=== PATIENT | female | born 1950 | race Caucasian/White ===

== ENCOUNTER 2024-08-31 13:34 | Outpatient (OUT) | payer MEDICARE, SELFPAY ==
--- NOTE | 2024-08-31 13:38 | MM_ITS ---
Patient Name: VALENTÍN CHAIREZ MR#: [id number] : 1950 Exam Date: 08/31/2024 Ordering Doctor: DR SURI ESPARZA M.D. RADIOLOGY REPORT PROCEDURE: MM TOMOSYNTHESIS SCREENING BI COMPARISON: MG MAMM SCREEN LUIS W CAD, 12/06/2019. MG MAMM SCREEN 3D LUIS CAD, 03/12/2022. INDICATIONS: Screening Calculator Name NCI Breast Cancer Risk Assessment Tool 5 Year Breast Cancer Risk 1.40% Lifetime Breast Cancer Risk 3.20% Personal Breast Cancer No Personal Ovarian Cancer No Treatments None Family Cancers Aunt-maternal with breast cancer at age 32; Mother with ovarian cancer at age 63. LOCATION: [facility] BREAST COMPOSITION: There are scattered areas of fibroglandular density. FINDINGS: DIAGNOSTIC CATEGORY 2--BENIGN FINDING. NO CHANGE FROM COMPARISON. Scattered benign-appearing calcifications are present. RIGHT BREAST: No significant suspicious finding. LEFT BREAST: No significant suspicious finding. RECOMMENDATIONS: ROUTINE MAMMOGRAM AND CLINICAL EVALUATION IN 12 MONTHS. PLEASE NOTE: A NORMAL MAMMOGRAM DOES NOT EXCLUDE THE POSSIBILITY OF BREAST CANCER. A CLINICALLY SUSPICIOUS PALPABLE LUMP SHOULD BE BIOPSIED. Dictated by: Enrique Leo MD on 08/31/2024 at 15:11 Approved by: Enrique Leo MD on 08/31/2024 at 15:12
--- NOTE | 2024-08-31 13:38 | XR_ITS ---
The [address] [address] Patient Name: VALENTÍN CHAIREZ MRN: [id number] date: 1950 Sex: F Assigned Patient Location: [facility] Current Patient Location: Accession/Order Number: [id number] Exam Date: 08/31/2024 13:55 Report Date: 09/01/2024 04:51 At the request of: SURI ESPARZA Procedure: XR DEXA axial skeleton EXAMINATION: XR DEXA axial skeleton HISTORY: Estrogen Deficiency COMPARISON: DEXA bone densitometry 03/12/2022 TECHNIQUE: Dual-energy X-ray absorptiometry (DXA) was performed. FINDINGS: SPINE ANALYSIS: Average bone mineral density is 1.014 g/cm2. T-score (standard deviation relative to young adult mean): -1.4 . -9.7% change since prior study. HIP ANALYSIS: Lowest bone mineral density is within the right femoral neck, 0.697 g/cm2. T-score (standard deviation relative to young adult mean): -2.5 . -2.3% change since prior study. XR/XR DEXA axial skeleton IMPRESSION: World Health Organization Classification: Osteoporosis - High Fracture Risk FRAX: Cannot be calculated. Pharmacologic treatment recommendations * No uniform recommendation applies to all patients. Management plans must be individualized. * Consider initiating pharmacologic treatment in postmenopausal women and men >= 50 years of age who have the following: Primary fracture prevention: * T-score <= - 2.5 at the femoral neck, total hip, lumbar spine, 33% radius (some uncertainty with existing data) by DXA. * Low bone mass (osteopenia: T-score between - 1.0 and - 2.5) at the femoral neck or total hip by DXA with a 10-year hip fracture risk >= 3% or a 10-year major osteoporosis-related fracture risk >= 20% (i.e., clinical vertebral, hip, forearm, or proximal humerus) based on the [place]-adapted FRAXregistered model. Secondary fracture prevention: * Fracture of the hip or vertebra regardless of BMD [4, 5]. * Fracture of proximal humerus, pelvis, or distal forearm in persons with low bone mass (osteopenia: T-score between - 1.0 and - 2.5). The decision to treat should be individualized in persons with a fracture of the proximal humerus, pelvis, or distal forearm who do not have osteopenia or low BMD [12, 13]. Melissa MS, Katalina SL, Ben KL, Art EM, Buddy KG, AJ, Micaela ES. The clinician's guide to prevention and treatment of osteoporosis. Osteoporos Int. 2021;33(10):7208-6118. doi: 10.1007/m26490-463-96961-c. Epub 2021Feb 13. Erratum in: Osteoporos Int. 2021May 15;: PMID: [id number]; PMCID: [id number]. Electronically authenticated by: VICKI GLEZ Date: 09/01/2024 04:51
== END 2024-08-31 13:35 | disposition home or self-care (01) ==
LOC: MAMMO 13:34
PROVIDERS: PCP Internal Medicine; Visit Provider Internal Medicine
DX: Z12.31 Encounter for screening mammogram for malignant neoplasm of breast (principal); E28.39 Other primary ovarian failure; Z80.3 Family history of malignant neoplasm of breast; Z80.41 Family history of malignant neoplasm of ovary; M81.0 Age-related osteoporosis without current pathological fracture
CPT/HCPCS: 77063; 77067; 77080